=== PATIENT | male | born 1945 | race Caucasian/White ===

== ENCOUNTER 2018-04-10 17:20 | Emergency (ER) | payer MEDICARE, BC ==
[~2018-04-10] VITALS: Ht 180.3 cm; Wt 100.0 kg
[~2018-04-10 17:20] MED LIST: ASCO-316 PO; ASPI-611 PO; CLOB15OI3 TOP; FURO40TA4 PO; LISI-600 PO; LUTEIN PO; METO50TA17 PO; MULT-38 PO; NIAC500T9 PO; OMEG1CAP2 PO; POTA20TA10 PO; VITA1TAB20 PO; ZEAXANTHIN PO
[2018-04-10] MEDS ORDERED: LIDOcaine 1.5% w/epinephrine 1:200,000 5ml ampul IJ ONE (17:40)
[2018-04-10] MEDS ORDERED: TETanus/Pertussis (Acell)/Diphther VAC/PF (Tdap-Adult) 0.5ml syringe IM ONE (17:50)
[2018-04-10] MEDS ORDERED: phytonadione inj. 2 MG in normal saline 100ml IV soln 99.8 ML IV ONE (18:25)
[2018-04-10 19:38] VITALS: BP 145/93
== END 2018-04-10 19:40 | disposition home or self-care (01) ==
LOC: ER 17:21 → EDBD 17:21 → ER 19:40
DX: S61.211A Laceration without foreign body of left index finger without damage to nail, initial encounter (principal); I50.9 Heart failure, unspecified; I11.0 Hypertensive heart disease with heart failure; Z95.1 Presence of aortocoronary bypass graft; Z79.82 Long term (current) use of aspirin; Z79.899 Other long term (current) drug therapy; W26.0XXA Contact with knife, initial encounter; Y93.89 Activity, other specified; Y92.89 Other specified places as the place of occurrence of the external cause; Y99.8 Other external cause status
CPT/HCPCS: 12001; 90471; 90715; 96365; 99284; A6255; A6449; J3430; J3490; J7030